=== PATIENT | female | born 1990 | race Caucasian/White ===

== ENCOUNTER 2022-02-22 18:08 | Emergency (ER) | payer OTHER, SELFPAY ==
[2022-02-22] VITALS (20 sets, daily range): BP systolic 114–136; BP diastolic 77–95; PULSE 61–97; RESP 14–30; TEMP 37.3; O2SAT 97–100
--- NOTE | 2022-02-22 18:26 | PC.NURSE ---
call to Poison Control gabapentin 5 hr peak methocarbamol 2 hr peak. not toxic dose 1 ekg, 4hr observation period
[2022-02-22] MEDS: SODIUM CHLORIDE 0.9% IV 1,000 ML 999 ML IV CONT (18:46)
[2022-02-22 18:50] LABS: Basophils Absolute Auto 0.1 K/mm3 (0.0-0.1); Basophils Percent Auto 0.7 % (0.2-1.2); Eosinophils Absolute Auto 0.1 K/mm3 (0-0.3); Eosinophils Percent Auto 1.1 % (0-4.4); Hematocrit 41.7 % (37.0-47.0); Immature Granulocyte Absolute 0.01 K/mm3 (0.00-0.031); Immature Granulocyte Percent A 0.1 % (0-0.5); Lymphocytes Absolute Auto 2.85 K/mm3 (0.9-3.2); Lymphocytes Percent Auto 40.3 % (18.3-44.2); Mean Corpuscular HGB Conc 33.6 g/dl (32-36); Mean Corpuscular Volume 92.5 fl (80-100); Mean Platelet Volume 9.9 fl (7.4-10.4); Monocytes Absolute Auto 0.7 K/mm3 (0.1-0.6); Monocytes Percent Auto 10.2 % (2.6-8.5); Neutrophils Absolute Auto 3.4 K/mm3 (1.3-6.7); Neutrophils Percent Auto 47.6 % (45.5-73.1); Platelet Count Result 289 k/mm3 (150-375); Red Blood Count 4.51 M/mm3 (4.2-5.4); Red Cell Distribution Width 15.8 % (11.5-14.5); White Blood Count 7.1 K/mm3 (4.5-10.0)
[2022-02-22 18:55] LABS: Alanine Aminotransferase 35 U/L (4-35); Albumin Level 4.5 g/dL (3.5-5.1); Alkaline Phosphatase 83 U/L (38-126); Anion Gap 9 mmol/L (8-16); Aspartate Amino Transferase 57 U/L (14-36); Bilirubin,Total 0.3 mg/dL (0.2-1.3); Blood Urea Nitrogen 11 mg/dL (7-17); Calcium 8.5 mg/dL (8.4-10.2); Carbon Dioxide 22 mmol/L (22-30); Chloride 109 mmol/L (98-107); Estimated CRCL calculation 74 ml/min; Estimated Glomerular Filt Rate > 60; Ethanol 220 mg/dL (<10); Glucose 91 mg/dL (65-110); Potassium 3.7 mmol/L (3.4-5.0); Sodium 140 mmol/L (137-145)
[2022-02-22 18:56] LABS: Acetaminophen < 10 ug/mL (10-30); Salicylate < 1.0 mg/dL (2-20)
[2022-02-22 18:57] LABS: Add Urine Microscopic? YES; Appearance Urine Cloudy (Clear); Bacteria Urine Trace /hpf; Bilirubin Urine Negative (Negative); Blood Urine Negative (Negative); Color Urine Yellow (Yellow); Glucose Urine UA Negative (Negative); Ketones Urine Negative (Negative); Leukocyte Esterase Ur Negative LEU/UL (Negative); Nitrate Urine Negative (Negative); Protein Urine Negative (Negative); RBC Urine 0-2 /hpf (0-2); Specific Grav Ur 1.013 (1.001-1.035); Squamous Epithelial Cell Urine Moderate /hpf (Few); Urobilinogen Urine Negative mg/dL (<2.0); WBC Urine 0-3 /hpf
[2022-02-22 19:03] LABS: Amphetamine Screen Urine Negative (Negative); Barbiturate Screen Urine Negative (Negative); Benzodiazepines Screen Urine Negative (Negative); Cannabinoid Screen Urine Positive (Negative); Cocaine Screen Urine Negative (Negative); Methadone Screen Urine Negative (Negative); Opiate Screen Urine Negative (Negative); Phencyclidine Screen Urine Negative (Negative)
--- NOTE | 2022-02-22 19:15 | PC.NURSE ---
SHAVON jordan [facility]
[2022-02-22 19:37] LABS: SARS-CoV-2 RNA PCR Negative
--- NOTE | 2022-02-22 20:36 | ECG_ITS ---
Measurements Intervals [place] Rate: 75 P: 70 IA: 145 QRS: 69 QRSD: 94 T: 63 QT: 404 QTc: 453 Interpretive Statements SINUS RHYTHM WITH SINUS ARRHYTHMIA NORMAL ECG NO PREVIOUS ECG AVAILABLE FOR COMPARISON Electronically Signed On 02-23-2022 12:46:13 CDT by Royce Montaño M.D.
--- NOTE | 2022-02-22 20:36 | PC.NURSE ---
spoke with poison control. Want an EKG.
--- NOTE | 2022-02-22 21:00 | ED.PSYCH ---
HPI - Psych General Chief Complaint: Psychiatric Symptoms <Mateo Sykes MD - Last Filed: 02/22/22 21:50> Stated Complaint: overdose <Mateo Sykes MD - Last Filed: 02/22/22 21:50> Time Seen by Provider: 02/22/22 18:16 <Mateo Sykes MD - Last Filed: 02/22/22 21:50> History of Present Illness HPI Narrative: Patient is a 31-year-old female who presents ER with suicide attempt. Patient ingested 10 tablets of 300 mg gabapentin and 10 tablets of 500 mg methocarbamol. Patient reports this is an attempt to take her own life. She has been under extreme stress due to having to change the date of her wedding but also having recently left her job and then training for new job. She was fighting with her ficarlos guadarrama and had been drinking a couple bottles of liquor when this situation occurred. Patient reports history of hospitalization for suicide attempt multiple times in the past. <Mateo Sykes MD - Last Filed: 02/22/22 21:50> Related Data Allergies/Adverse Reactions: Allergies Allergy/AdvReac Type Severity Reaction Status Date / Time No Known Allergies Allergy Unverified 10/28/17 22:33 <Mateo Sykes MD - Last Filed: 02/22/22 21:50> Review of Systems Review of Systems: All systems reviewed & are unremarkable except as noted in HPI and below <Mateo Sykes MD - Last Filed: 02/22/22 21:50> Constitutional: Constitutional: Denies chills, Denies fever(s) and Denies weakness <Mateo Sykes MD - Last Filed: 02/22/22 21:50> ENT: Denies nasal congestion and Denies sore throat <Mateo Sykes MD - Last Filed: 02/22/22 21:50> Cardiovascular: Cardiovascular: Denies chest pain, Denies rapid heart rate and Denies radiating jaw, neck or arm pain <Mateo Sykes MD - Last Filed: 02/22/22 21:50> Respiratory: Respiratory: Denies cough, Denies dyspnea and Denies wheezing <Mateo Sykes MD - Last Filed: 02/22/22 21:50> Gastrointestinal: Gastrointestinal: Denies abdominal pain, Denies nausea and Denies vomiting <Mateo Sykes MD - Last Filed: 02/22/22 21:50> Psychiatric: Psychiatric: Reports anxiety, Reports depression, Denies homicidal ideation and Reports suicidal ideation <Mateo Sykes MD - Last Filed: 02/22/22 21:50> PMFSH Past Medical History Medical History: Medical History (Updated 02/23/22 @ 04:34 by Martín Lopez MD) Anxiety Depression <Mateo Sykes MD - Last Filed: 02/22/22 21:50> Surgical History Surgical History: Surgical History (Updated 02/22/22 @ 21:50 by Mateo Sykes MD) History of cholecystectomy <Mateo Sykes MD - Last Filed: 02/22/22 21:50> Social History Social History: Social History (Updated 02/22/22 @ 21:50 by Mateo Sykes MD) Tobacco type: cigarettes Substance use type: marijuana <Mateo Sykes MD - Last Filed: 02/22/22 21:50> Exam Narrative: GENERAL: Well-appearing, well-nourished, and crying. HEAD: Normocephalic, atraumatic. EYES: PERRL and EOMI. ENT: Mucous membranes moist. CHEST: Clear to auscultation. No respiratory distress. HEART: Regular rate and rhythm. Normal peripheral pulses. ABDOMEN: Soft, nontender, nondistended. EXTREMITIES: Normal range of motion. No edema. SKIN: Warm, dry, no rash. NEURO: Alert and oriented x3. PSYCH: Anxious and depressed. Reports suicidal ideation and attempt tonight. No HI. No hallucinations. <Mateo Sykes MD - Last Filed: 02/22/22 21:50> Course Reevaluation(s) Reevaluation #1: Poison control contacted. Patient has ingested nontoxic amount of drug. They recommend to treat her symptomatically. Patient should be observed for 4 hours postinjection. Patient will then need to be observed until she is sober and can be evaluated by crisis. <Mateo Sykes MD - Last Filed: 02/22/22 21:50> Patient is medically stable and appropriate for crisis evaluation and psychiatric placement. <Martín
--- NOTE | 2022-02-22 23:12 | PC.NURSE ---
Poison Control states pt is cleared
[2022-02-22] MEDS: NICOTINE (*PBKC) 21 MG PATCH 1 PATCH TRANSDERM (23:21)
[2022-02-23] VITALS (20 sets, daily range): BP systolic 110–134; BP diastolic 79–89; PULSE 62–96; RESP 12–27; TEMP 36.4; O2SAT 97–100
[2022-02-23 00:28] LABS: Ethanol 89 mg/dL (<10)
--- NOTE | 2022-02-23 01:21 | PC.NURSE ---
Crisis made aware of pt
--- NOTE | 2022-02-23 02:38 | PC.NURSE ---
Crisis assessing pt at this time.
[2022-02-23] MEDS: diphenhydrAMINE HCl CAP 25 MG CAPSULE PO (04:39)
[2022-02-23] MEDS: KETOROLAC 15 MG/ML VIAL (*BKC) IV PUSH (04:39)
--- NOTE | 2022-02-23 05:49 | PC.NURSE ---
nurse to intake report to [facility] states they will call back later.
--- NOTE | 2022-02-23 05:53 | PC.NURSE ---
[facility] asking for pts chart to be sent including the voluntary petition. States they will be accepting patient. Will most likely be accepting, physician Dr. Archer.
--- NOTE | 2022-02-23 06:46 | PC.NURSE ---
called [facility] for transfer, their ETA was tomorrow 02-24-2022 at 1130 AM, declined for other EMS earlier ETA -[place]
--- NOTE | 2022-02-23 06:48 | PC.NURSE ---
pt signed consent form for transfer. RN called pts
--- NOTE | 2022-02-23 07:08 | PC.NURSE ---
[facility] to [place]. Pt to be transported via EMS around 1030 to [place].
--- NOTE | 2022-02-23 07:38 | PC.NURSE ---
pt resting in stretcher w/ equal chest rise and fall. sitter at bedside. ordered pt safety breakfast tray.
== END 2022-02-23 10:38 ==
PROVIDERS: Emergency Medicine; Emergency Provider Emergency Medicine; PCP Physician Assistant
DX: T42.6X2A Poisoning by other antiepileptic and sedative-hypnotic drugs, intentional self-harm, initial encounter (principal); T42.8X2A Poisoning by antiparkinsonism drugs and other central muscle-tone depressants, intentional self-harm, initial encounter; Z20.822 Contact with and (suspected) exposure to COVID-19; F41.9 Anxiety disorder, unspecified; F32.A Depression, unspecified; F17.210 Nicotine dependence, cigarettes, uncomplicated
CPT/HCPCS: 36415; 80053; 80307; 81001; 81025; 84443; 85025; 93005; 96361; 96374; 99285; A9270; C9803; J1885; J7030; U0003; U0005

== ENCOUNTER 2022-08-22 22:18 | Emergency (ER) | payer OTHER, SELFPAY ==
[2022-08-22 22:25] VITALS: BP 146/87; PULSE 113; RESP 14; TEMP 36.8; O2SAT 98
[2022-08-22 22:40] VITALS: BP 132/91; PULSE 98; RESP 21; O2SAT 97
[2022-08-22 23:03] LABS: Basophils Absolute Auto 0.1 K/mm3 (0.0-0.1); Basophils Percent Auto 0.8 % (0.2-1.2); Eosinophils Absolute Auto 0.1 K/mm3 (0-0.3); Immature Granulocyte Absolute 0.03 K/mm3 (0.00-0.031); Immature Granulocyte Percent A 0.3 % (0-0.5); Lymphocytes Absolute Auto 2.84 K/mm3 (0.9-3.2); Lymphocytes Percent Auto 31.6 % (18.3-44.2); Mean Corpuscular Hemoglobin 32.1 pg (26-34); Mean Corpuscular Volume 94.2 fl (80-100); Mean Platelet Volume 9.5 fl (7.4-10.4); Monocytes Absolute Auto 0.5 K/mm3 (0.1-0.6); Monocytes Percent Auto 5.5 % (2.6-8.5); Neutrophils Absolute Auto 5.5 K/mm3 (1.3-6.7); Neutrophils Percent Auto 60.8 % (45.5-73.1); Platelet Count Result 361 k/mm3 (150-375); Red Blood Count 4.99 M/mm3 (4.2-5.4); Red Cell Distribution Width 13.9 % (11.5-14.5)
[2022-08-22 23:12] LABS: Alanine Aminotransferase 29 U/L (6-35); Albumin Level 4.9 g/dL (3.5-5.1); Alkaline Phosphatase 91 U/L (38-126); Anion Gap 19 mmol/L (8-16); Aspartate Amino Transferase 40 U/L (14-36); Bilirubin,Total 0.5 mg/dL (0.2-1.3); Blood Urea Nitrogen 11 mg/dL (7-17); Calcium 9.2 mg/dL (8.4-10.2); Carbon Dioxide 24 mmol/L (22-30); Chloride 106 mmol/L (98-107); Estimated Glomerular Filt Rate > 60; Glucose 114 mg/dL (65-110); Potassium 3.6 mmol/L (3.4-5.0); Sodium 149 mmol/L (137-145)
[2022-08-22 23:30] VITALS: BP 132/74; PULSE 80; RESP 16; O2SAT 98
[2022-08-22 23:43] LABS: Amphetamine Screen Urine Negative (Negative); Barbiturate Screen Urine Negative (Negative); Benzodiazepines Screen Urine Negative (Negative); Cannabinoid Screen Urine Positive (Negative); Cocaine Screen Urine Negative (Negative); Methadone Screen Urine Negative (Negative); Opiate Screen Urine Negative (Negative); Phencyclidine Screen Urine Negative (Negative)
[2022-08-22 23:44] LABS: SARS-CoV-2 RNA PCR Negative
[2022-08-22 23:45] LABS: Add Urine Microscopic? YES; Appearance Urine Cloudy (Clear); Bacteria Urine Trace /hpf; Bilirubin Urine Negative (Negative); Blood Urine 2+ (Negative); Color Urine Yellow (Yellow); Glucose Urine UA Negative (Negative); Ketones Urine Negative (Negative); Leukocyte Esterase Ur Negative LEU/UL (Negative); Mucus Urine Rare /lpf; Nitrate Urine Negative (Negative); Protein Urine Negative (Negative); RBC Urine 0-2 /hpf (0-2); Specific Grav Ur 1.013 (1.001-1.035); Squamous Epithelial Cell Urine Many /hpf (Few); Urobilinogen Urine Negative mg/dL (<2.0); WBC Urine 0-3 /hpf
[2022-08-22 23:45] LABS: Ethanol 381 mg/dL (<10)
[2022-08-23 00:30] VITALS: PULSE 76; RESP 16; O2SAT 100
--- NOTE | 2022-08-23 01:07 | ED.GENADULT ---
HPI - General Adult General Chief complaint: Psychiatric Symptoms <Yang Mckinney MD - Last Filed: 08/23/22 06:36> Stated complaint: back pain <Yang Mckinney MD - Last Filed: 08/23/22 06:36> Time Seen by Provider: 08/22/22 22:48 <Yang Mckinney MD - Last Filed: 08/23/22 06:36> History of Present Illness HPI narrative: Patient 32-year-old female who presents the emergency department with chief complaint of suicidal ideation. Patient reports that she has been under a lot of stress and has been having thoughts of wanting to harm her self. The patient reports she drank a large amount of alcohol this evening and reports that she does not want to live anymore. Patient reports she has history of depression reports she has tried to harm her self in the past and has had hospitalizations in the past. <Yang Mckinney MD - Last Filed: 08/23/22 06:36> Related Data Allergies/adverse reactions: Allergies Allergy/AdvReac Type Severity Reaction Status Date / Time No Known Allergies Allergy Verified 08/22/22 22:40 <Yang Mckinney MD - Last Filed: 08/23/22 06:36> Review of Systems Review of Systems: A 10 system review of systems was completed on the patient and is negative except for what is stated in the HPI. Nursing and ancillary documentation was reviewed. <Yang Mckinney MD - Last Filed: 08/23/22 06:36> [facility] Past Medical History Medical History: Medical History Anxiety Depression <Yang Mckinney MD - Last Filed: 08/23/22 06:36> Surgical History Surgical History: Surgical History History of cholecystectomy <Yang Mckinney MD - Last Filed: 08/23/22 06:36> Social History Social History: Social History Tobacco type: cigarettes Substance use type: marijuana and prescription drug <Yang Mckinney MD - Last Filed: 08/23/22 06:36> Exam Narrative: GENERAL: Well-appearing, well-nourished, and in no acute distress. Appears to be intoxicated HEAD: Normocephalic, atraumatic. EYES: PERRLA and EOMI. ENT: Nares clear, no rhinorrhea or epistaxis. Mucous membranes moist. NECK: Supple. CHEST: Clear to auscultation. No respiratory distress. HEART: Regular rate and rhythm. No murmur heard. Normal peripheral pulses. ABDOMEN: Soft, nontender, nondistended, normal active bowel sounds. EXTREMITIES: Normal range of motion. No edema. SKIN: Warm, dry, no rash. NEURO: No focal deficits. Alert and oriented x3. PSYCH: Reports active suicidality. <Yang Mckinney MD - Last Filed: 08/23/22 06:36> Course Course Emergency Course: Patient is still highly intoxicated the patient will be allowed to metabolize and a repeat alcohol will be drawn at 1149 in the morning. I will be signing out care to the day provider <Yang Mckinney MD - Last Filed: 08/23/22 06:36> Reevaluation(s) Reevaluation #1: Currently patient feeling much better, denies any suicidal or homicidal ideation, would like to go home. And she agreed that her drinking have to stop and she can work it out with some alcohol dependence organization to help her to quit. She does not have about losing 1 day work today. She declined to take tomorrow off work. She needs a month. Crisis discussed safety plan with the patient. <Russ Carter MD - Last Filed: 08/23/22 15:10> Date: 08/23/22 <Russ Carter MD - Last Filed: 08/23/22 15:10> Time: 15:08 <Russ Carter MD - Last Filed: 08/23/22 15:10> Vital Signs Vital signs: Vital Signs Temperature 36.8 C 08/22/22 22:25 Pulse Rate 113 H 08/22/22 22:25 Respiratory Rate 14 08/22/22 22:25 Blood Pressure 146/87 H 08/22/22 22:25 Pulse Oximetry 98 08/22/22 22:25
--- NOTE | 2022-08-23 03:06 | PC.NURSE ---
patient jumped out of bed hysterically. attempted to open the cabinets to cut my fucking wrists, I just want to , let me go . patient sitting on the floor by the bed crying and screaming. patient moved to a more secure room. staff sitter at bedside during episode and staff member remains at bedside for 1:1 supervision
[2022-08-23] MEDS: LORazepam INJ (*CRX) 2 MG/ML VIAL IM (03:10)
[2022-08-23] MEDS: HALOPERIDOL LACTATE 5 MG/ML VIAL IM (03:11)
--- NOTE | 2022-08-23 03:12 | PC.NURSE ---
pt moved to room 15 from room 7 after jumping over rail on her bed and attempted to get into cabinet to find something to cut wrist. Pt yelling she has the right to kill herself. Pt reports she wants to because she has chronic pain
[2022-08-23] MEDS: ACETAMINOPHEN 325 MG TABLET 650 MG PO (12:08)
[2022-08-23] MEDS: IBUPROFEN 600 MG TABLET PO (12:08)
[2022-08-23 12:13] LABS: Ethanol 31 mg/dL (<10)
[2022-08-23 15:39] VITALS: BP 112/52; PULSE 84; RESP 18; O2SAT 100
== END 2022-08-23 16:00 | disposition home or self-care (01) ==
PROVIDERS: Emergency Medicine; Emergency Provider Emergency Medicine; PCP Physician Assistant
DX: F10.129 Alcohol abuse with intoxication, unspecified (principal); Y90.8 Blood alcohol level of 240 mg/100 ml or more; Z20.822 Contact with and (suspected) exposure to COVID-19; F41.9 Anxiety disorder, unspecified; F32.9 Major depressive disorder, single episode, unspecified
CPT/HCPCS: 36415; 80053; 80307; 81001; 81025; 84443; 85025; 96372; 99284; A9270; J1630; J2060; U0003; U0005

== ENCOUNTER 2023-04-18 18:44 | Emergency (ER) | payer OTHER, SELFPAY ==
[2023-04-18 18:43] VITALS: BP 148/95; PULSE 96; RESP 17; TEMP 36.8; O2SAT 98
[2023-04-18 19:12] LABS: Basophils Absolute Auto 0.1 K/mm3 (0.0-0.1); Basophils Percent Auto 0.8 % (0.2-1.2); Eosinophils Absolute Auto 0.1 K/mm3 (0-0.3); Eosinophils Percent Auto 1.1 % (0-4.4); Hematocrit 45.2 % (37.0-47.0); Hemoglobin 15.4 g/dL (12.0-15.0); Immature Granulocyte Absolute 0.02 K/mm3 (0.00-0.031); Immature Granulocyte Percent A 0.2 % (0-0.5); Lymphocytes Absolute Auto 3.25 K/mm3 (0.9-3.2); Lymphocytes Percent Auto 35.2 % (18.3-44.2); Mean Corpuscular HGB Conc 34.1 g/dl (32-36); Mean Corpuscular Hemoglobin 30.7 pg (26-34); Mean Corpuscular Volume 90.2 fl (80-100); Mean Platelet Volume 9.4 fl (7.4-10.4); Monocytes Absolute Auto 0.6 K/mm3 (0.1-0.6); Monocytes Percent Auto 6.2 % (2.6-8.5); Neutrophils Absolute Auto 5.2 K/mm3 (1.3-6.7); Neutrophils Percent Auto 56.5 % (45.5-73.1); Platelet Count Result 357 k/mm3 (150-375); Red Blood Count 5.01 M/mm3 (4.2-5.4); Red Cell Distribution Width 13.9 % (11.5-14.5); White Blood Count 9.2 K/mm3 (4.5-10.0)
[2023-04-18 19:23] LABS: Alanine Aminotransferase 30 U/L (6-35); Albumin Level 4.6 g/dL (3.5-5.1); Alkaline Phosphatase 74 U/L (38-126); Anion Gap 11 mmol/L (8-16); Aspartate Amino Transferase 35 U/L (14-36); Bilirubin,Total 0.4 mg/dL (0.2-1.3); Blood Urea Nitrogen 14 mg/dL (7-17); Calcium 8.7 mg/dL (8.4-10.2); Carbon Dioxide 25 mmol/L (22-30); Chloride 107 mmol/L (98-107); Estimated CRCL calculation 93 ml/min; Estimated Glomerular Filt Rate > 60; Glucose 95 mg/dL (65-110); Potassium 3.8 mmol/L (3.4-5.0); Sodium 143 mmol/L (137-145)
[2023-04-18 19:39] LABS: Ethanol 342 mg/dL (<10)
--- NOTE | 2023-04-18 19:58 | ED.PSYCH ---
HPI - Psych General Chief Complaint: Psychiatric Symptoms <SHUBHAM Colon Last Filed: 04/25/23 08:54> Stated Complaint: SI <SHUBHAM Colon Last Filed: 04/25/23 08:54> Time Seen by Provider: 04/18/23 19:25 <SHUBHAM Colon Last Filed: 04/25/23 08:54> Source: patient and old records reviewed <SHUBHAM Colon Last Filed: 04/25/23 08:54> Mode of arrival: ambulatory <SHUBHAM Colon Last Filed: 04/25/23 08:54> Limitations: no limitations and intoxication <SHUBHAM Colon Last Filed: 04/25/23 08:54> History of Present Illness HPI Narrative: Patient is a 33-year-old female who presents to the ED with report of SI. Patient reports she is self admitting herself for alcohol detox and psychiatric treatment. Patient reports she has been dealing with worsening pain over the last few days related to her fibromyalgia. She has been drinking to try to cope with the pain. She has been drinking daily for the last 4 days. Last drank shooters at noon today. Patient reports having intermittent suicidal thoughts over the last few days, worsening today. She states she just does not want to be here anymore or want anyone to have to worry about her. She has had a thought of wanting to overdose on pills. She states she has done this before. She did not take anything today. Denies any homicidal ideation, AVH. <SHUBHAM Colon Last Filed: 04/25/23 08:54> Related Data Allergies/Adverse Reactions: Allergies Allergy/AdvReac Type Severity Reaction Status Date / Time No Known Allergies Allergy Verified 04/18/23 19:00 <SHUBHAM Colon Last Filed: 04/25/23 08:54> Review of Systems Review of Systems: CONSTITUTIONAL: Denies fever, chills, or sweats. CARDIOVASCULAR: Denies chest pain. RESPIRATORY: Denies dyspnea. GASTROINTESTINAL: Denies abdominal pain, nausea, vomiting. GENITOURINARY: Denies dysuria or hematuria. SKIN: Denies rash or itching. MUSCULOSKELETAL: See HPI. PSYCHIATRIC: See HPI. <Erica Parisi PA-C - Last Filed: 04/25/23 08:54> All systems reviewed & are unremarkable except as noted in HPI and below <Erica Parisi PA-C - Last Filed: 04/25/23 08:54> [facility] Past Medical History Medical History: Medical History Anxiety Depression <Erica Parisi PA-C - Last Filed: 04/25/23 08:54> Surgical History Surgical History: Surgical History History of cholecystectomy <Erica Parisi PA-C - Last Filed: 04/25/23 08:54> Social History Social History: Social History Tobacco type: cigarettes Substance use type: marijuana <Erica Parisi PA-C - Last Filed: 04/25/23 08:54> Exam Narrative: GENERAL: Anxious, obese with BMI of 30.3, non-toxic, in no acute distress. HEAD: Normocephalic, atraumatic. NECK: Supple. No adenopathy, no masses. RESPIRATORY: Airway patent, respirations nonlabored, hyperventilating, intermittently holding breath. Clear to auscultation bilaterally, no rales, rhonchi, wheezing. CARDIOVASCULAR: Regular rate and rhythm without murmurs, rubs, or gallops. Radial pulses 2+ and equal bilaterally. ABDOMINAL: Soft, nontender, nondistended, no hepatosplenomegaly. Normoactive BS. MUSCULOSKELETAL: Moves all extremities. Strength/ROM intact without gross deformities. SKIN: Warm, dry, normal color. No rashes. NEURO: A&O X3. Speech clear. Cranial nerves II-XII grossly intact. Steady gait. No ataxic movements. PSYCHIATRIC: Anxious, tearful, writhing on ED bed. Normal interaction. <Erica Parisi PA-C - Last Filed: 04/25/23 08:54> Course Course Emergency Course: Patient resting comfortably. Clinically sober. Contracted for sa
[2023-04-18] MEDS: LORazepam INJ (*CRX) 2 MG/ML VIAL 0.5 MG IM (20:28)
[2023-04-18 21:44] LABS: Amphetamine Screen Urine Negative (Negative); Barbiturate Screen Urine Negative (Negative); Benzodiazepines Screen Urine Negative (Negative); Cannabinoid Screen Urine Positive (Negative); Cocaine Screen Urine Negative (Negative); Methadone Screen Urine Negative (Negative); Opiate Screen Urine Negative (Negative); Phencyclidine Screen Urine Negative (Negative)
[2023-04-18 21:52] LABS: Appearance Urine Cloudy (Clear); Bacteria Urine 4+ /hpf; Bilirubin Urine Negative (Negative); Blood Urine Negative (Negative); Color Urine Yellow (Yellow); Glucose Urine UA Negative (Negative); Ketones Urine Trace mg/dL (Negative); Leukocyte Esterase Ur Negative LEU/UL (Negative); Need Manual Microscopic Reviewed; Nitrate Urine Negative (Negative); Non Pathogenic Casts 0-2; Protein Urine 1+ mg/dL (Negative); Specific Grav Ur 1.021 (1.001-1.035); Squamous Epithelial Cell Urine Many /hpf (Few); WBC Urine 0-5 /hpf; pH Urine 6.5 (5.0-9.0)
[2023-04-18 22:00] LABS: Add Urine Microscopic? YES
--- NOTE | 2023-04-18 23:53 | PC.NURSE ---
After admin of Ativan pt stated she was feeling much less anxious . Pt was given food/water. Pt has been resting quietly since.
--- NOTE | 2023-04-19 | PC.NURSE ---
at this time this RN is awaiting pt medical clearance to contact Crisis.
[2023-04-19 05:11] LABS: Influenza A QL RT-PCR Negative (Negative); Influenza B QL RT-PCR Negative (Negative); SARS-CoV-2 RNA PCR Negative (Negative)
[2023-04-19 06:37] VITALS: BP 117/59; PULSE 75; RESP 11; O2SAT 99
--- NOTE | 2023-04-19 06:40 | PC.NURSE ---
Pt reports she is not having SI or HI. Pt states I just feel stupid, I need rehab
[2023-04-19 07:07] LABS: Ethanol 63 mg/dL (<10)
--- NOTE | 2023-04-19 07:15 | PC.NURSE ---
Breakfast tray ordered for pt.
[2023-04-19] MEDS: ONDANSETRON HCL ODT 4 MG TABLET PO (07:37)
== END 2023-04-19 10:29 | disposition home or self-care (01) ==
PROVIDERS: Emergency Medicine; Emergency Provider Physician Assistant; PCP Physician Assistant
DX: R45.851 Suicidal ideations (principal); F32.A Depression, unspecified; F10.10 Alcohol abuse, uncomplicated; Y90.8 Blood alcohol level of 240 mg/100 ml or more; Z20.822 Contact with and (suspected) exposure to COVID-19; M79.7 Fibromyalgia; Z90.49 Acquired absence of other specified parts of digestive tract
CPT/HCPCS: 36415; 80053; 80307; 81001; 81025; 84443; 85025; 87086; 87088; 87636; 96372; 99284; A9270; J2060

== ENCOUNTER 2023-08-27 12:55 | Outpatient (CLI) | payer OTHER, SELFPAY ==
--- NOTE | ~2023-08-27 | MR_ITS ---
EXAMINATION: MR breast BI wo/w con INDICATION: High-risk screening TECHNIQUE: Axial VIBRANT pre and dynamic post contrast, Sagittal VIBRANT post contrast, Axial T2 STIR ASSET COMPARISON: None CONTRAST: Multihance, 19 cc BREAST COMPOSITION: Scattered fibroglandular tissue FINDINGS: RIGHT BREAST: There is mild background parenchymal enhancement. No abnormal enhancement is present af ter contrast administration. No pathologically enlarged axillary or internal mammary lymph nodes are identified. Intramammary lymph node is present in the posterior third of the upper outer quadrant of the breast. LEFT BREAST: There is mild background parenchymal enhancement. No abnormal enhancement is present aft er contrast administration. No pathologically enlarged axillary or internal mammary lymph nodes are i dentified. There is a cluster of cysts in the upper outer quadrant of the breast. IMPRESSION: 1. Unremarkable breast MRI. BI-RADS Category 2: Benign finding(s). Reviewed, dictated and finalized at location A. [facility]
== END 2023-08-27 12:56 | disposition home or self-care (01) ==
LOC: ANHIMG 13:00
PROVIDERS: PCP Physician Assistant; Visit Provider Physician Assistant
DX: R92.8 Other abnormal and inconclusive findings on diagnostic imaging of breast (principal)
CPT/HCPCS: 77049; A9577; C8908

== ENCOUNTER 2024-11-07 19:45 | Emergency (ER) | payer OTHER, SELFPAY ==
[2024-11-07 19:55] VITALS: BP 128/80; PULSE 87; RESP 17; TEMP 36.4; O2SAT 99
--- NOTE | 2024-11-07 21:46 | PC.NURSE ---
Patient walked up to triage desk and advised that she was leaving. Patient had a steady gait upon leaving.
== END 2024-11-07 23:12 | disposition left against medical advice (07) ==
PROVIDERS: PCP Physician Assistant Medical
DX: R51.9 Headache, unspecified (principal)
CPT/HCPCS: 99199

== ENCOUNTER 2025-09-08 09:59 | Outpatient (CLI) | payer OTHER, SELFPAY ==
--- NOTE | 2025-09-08 10:30 | NEURO_ITS ---
Impression: # Non-diabetic complains of numbness of hands. ? # Bilateral Carpal Tunnel Syndrome, right more than left. ? # Right early Ulnar Neuropathy. ? # Normal Needle/ EMG exam. Nerve Conduction Studies ?Stim Site NR Peak (ms) P-T Amp (?V) Site1 Site2 Delta-P (ms) Dist (cm) David (m/s) Left Median Anti Sensory (2-3nd Digit) Wrist ? 2.9 26.3 Wrist 2-3nd Digit 2.9 14.0 48 Wrist ? 3.6 28.4 Wrist 2-3nd Digit 2.9 14.0 48 Right Median Anti Sensory (2-3nd Digit) Wrist ? 4.5 23.3 Wrist 2-3nd Digit 4.5 14.0 31 Wrist ? 5.9 4.6 Wrist 2-3nd Digit 4.5 14.0 31 Left Radial Anti Sensory (Base 1st Digit) Wrist ? 1.7 33.9 Wrist Base 1st Digit 1.7 0.0 Right Radial Anti Sensory (Base 1st Digit) Wrist ? 1.9 30.7 Wrist Base 1st Digit 1.9 0.0 Left Ulnar Anti Sensory (5th Digit) Wrist ? 1.9 34.4 Wrist 5th Digit 1.9 14.0 74 Right Ulnar Anti Sensory (5th Digit) Wrist ? 2.0 33.6 Wrist 5th Digit 2.0 14.0 70 ?Stim Site NR Onset (ms) O-P Amp (mV) Site1 Site2 Delta-0 (ms) Dist (cm) David (m/s) Left Median Motor (Abd Poll Brev) Wrist ? 4.5 4.8 Elbow Wrist 4.8 28.0 58 Elbow ? 9.3 3.0 Right Median Motor (Abd Poll Brev) Wrist ? 4.8 3.4 Elbow Wrist 5.5 28.0 51 Elbow ? 10.3 3.5 Left Ulnar Motor (Abd Dig Minimi) Wrist ? 2.8 6.4 A Elbow Wrist 4.6 30.0 65 A Elbow ? 7.4 5.7 B Elbow Wrist 3.3 22.0 67 B Elbow ? 6.1 4.9 Right Ulnar Motor (Abd Dig Minimi) Wrist ? 2.4 5.8 A Elbow Wrist 4.7 30.0 64 A Elbow ? 7.1 6.3 B Elbow Wrist 3.3 20.0 61 B Elbow ? 5.7 5.1 F Wave Studies ?NR F-Lat (ms) L-R F-Lat (ms) Left Median (Mrkrs) (Abd Poll Brev) ? 26.86 0.82 Right Median (Mrkrs) (Abd Poll Brev) ? 27.68 0.82 Left Ulnar (Mrkrs) (Abd Dig Min) ? 25.55 0.39 Right Ulnar (Mrkrs) (Abd Dig Min) ? 25.94 0.39 Electromyography ?Side Muscle Nerve Root Ins Act Fibs Amp Dur Recrt Comment Right 1stDorInt Ulnar C8-T1 Nml Nml Nml Nml Nml Right Ext Indicis Radial (Post Int) C7-8 Nml Nml Nml Nml Nml Right Ext Digitorum Radial (Post Int) C7-8 Nml Nml Nml Nml Nml Right BrachioRad Radial C5-6 Nml Nml Nml Nml Nml Right PronatorTeres Median C6-7 Nml Nml Nml Nml Nml Right Abd Poll Brev Median C8-T1 Nml Nml Nml Nml Nml Right ABD Dig Min Ulnar C8-T1 Nml Nml Nml Nml Nml Right FlexPolLong Median (Ant Int) C7-8 Nml Nml Nml Nml Nml Right Abd Poll Long Radial (Post Int) C7-8 Nml Nml Nml Nml Nml Left 1stDorInt Ulnar C8-T1 Nml Nml Nml Nml Nml Left Ext Indicis Radial (Post Int) C7-8 Nml Nml Nml Nml Nml Left Ext Digitorum Radial (Post Int) C7-8 Nml Nml Nml Nml Nml Left BrachioRad Radial C5-6 Nml Nml Nml Nml Nml Left PronatorTeres Median C6-7 Nml Nml Nml Nml Nml Left Abd Poll Brev Median C8-T1 Nml Nml Nml Nml Nml Left ABD Dig Min Ulnar C8-T1 Nml Nml Nml Nml Nml Left FlexPolLong Median (Ant Int) C7-8 Nml Nml Nml Nml Nml Left Abd Poll Long Radial (Post Int) C7-8 Nml Nml Nml Nml Nml
--- OUTSIDE RECORDS SUMMARY | 2025-09-08 11:03 | XMS_ITS | Encounter Summary ---
Author Organization [facility] Address [address] [place] [address] [place] [address] Care Team Providers Care Occupancy Specialist Name Role Phone Nopcp, Patient Primary Care Provider UnavailCathryn Gustafson MD Primary Care Provider [phone] Marco A Mullen MD Unavailable Cathryn Peres MD Primary Care Provider [phone] Pcp, Unknown Primary Care Provider UnavailCathryn Gustafson MD Primary Care Provider [phone] Tarsha Herbert-Hector Primary Care Provider [phone] Faviola Torres-C Primary Care Provider + Dave Vasquez-C Primary Care Provider [phone] Encounter Details Date Type Department Care Team (Late st Contact Info) Description 06/08/2008 [facility] Outpatient Visit [facility] [employer] [address] [place] [address] Marco A Mullen MD [address] [place] [address] Social History Tobacco Use Types Packs/Day Years Used Date Smoking Tobacco: Every Day Cigarettes 0.5 8 Comments:READY TO QUIT Alcohol Use Standard Drinks/Week Comments No 0 (1 standard drink = 0.6 oz pur e alcohol) Comments Yes Sex and Gender Information Value Date Recorded Sex Assigned at Not on file Legal Sex Female 6:49 AM [employer] Gender Identity Not on file Sexual Orientation Not on file documented as of this encounter Plan of Treatment Upcoming Encounters Date Type Department Care Team (Late st Contact Info) Description 10/25/2025 9:00 AM [employer] Office Visit [facility] - Rheumatology [address] [place] [phone] Catie Bennett MD [address] [place] [phone] 02/24/2026 9:30 AM CDT Office Visit [facility] - Pulmonology [address] [facility] [place] [phone] Johnathan Saldivar MD [address] DIV OF PULMONARY/[place] [address] documented as of this encounter Visit Diagnoses Not on filedocumented in this encounter Care Teams Occupancy Specialist Relationship Specialty Start Date End Date Nopcp, Patient PCP - General 06/11/08 02/19/11 Cathryn Peres MD [address] [place] [phone] PCP - General 05/25/08 06/10/08 Marco A Mullen MD [address] [place] [phone] PCP - OBGYN 05/27/08 Cathryn Peres MD [address] [place] [phone] PCP - General 02/20/11 01/10/13 Pcp, Unknown [place] [address] PCP - General 01/11/13 Cathryn Peres MD [place] [address] PCP - General Family Medicine 02/05/13 07/16/18 Tarsha Herbert PA-C [place] [address] PCP - General 07/17/18 11/29/22 Faviola Torres PA-C [address] [place] [phone] PCP - General 11/30/22 09/28/24 Dave Vasquez PA-C [address] [place] [phone] PCP - General 09/29/24 documented as of this encounter
--- OUTSIDE RECORDS SUMMARY | 2025-09-08 11:03 | XMS_ITS | Patient Health Record ---
Author Organization [facility] Address [address] [place] [address] Care Team Providers Care Security Assistant Name Role Phone Wyatt Estes Primary Care Provider Allergies No Known Allergies Reason For Referral No Information Medications Medication SIG (Take, Route, Frequency, Duration) Notes Start Date End Date Status traMADol HCl 50 MG 1 tablet Orally Once a day Active Methocarbamol 500 MG 2 tablets Orally Tw ice a day Active Famotidine 20 MG Oral; Duration: 30 Days Active Fluticasone Propionate 50 MCG/ACT Nasal; Duration: 30 Days Active Allergy Relief 180 MG Oral; Duration: 30 Days Active lamoTRIgine 100 MG 1.5 tablet Orally twice a day; Duration: 30 day(s) Not-Taking hydrOXYzine Pamoate 50 MG 1 capsule as n eeded Orally twice a day Not-Taking traZODone HCl 100 MG 2 tablet at bedtime as needed Orally Once a day; Duration: 30 days Active cloNIDine HCl 0.1 MG 1 tablet Orally thr ee times a day; Duration: 30 days Active Abilify 20 MG 1 tablet Orally Once a day; Duration: 30 days Active ARIPiprazole 5 MG 1 tablet Orally at night Not-Taking Depakote ER 500 MG 2 tablet bedtime Orally Once a day; Duration: 30 days Active Abilify 15 MG 1 tablet Orally Once a day; Duration: 30 days Not-Takin g Gabapentin 300 MG 1 capsule Orally thr ee times daily Active Social History Tobacco Use: Social History Observation Description Date Details (start date - stop date) Current Smoker NA - NA Sex Assigned At : Social History Observation Description Sex Assigned At Female Tobacco Control (Standard) Question Answer Notes Tobacco use: Current smoker How often do you smoke cigarettes? Every day How many cigarettes a day do you smoke? 09-16 Problems Problem Type SNOMED Code ICD Code Onset Dates Problem Status W/U Status Risk Notes Problem Tobacco user (931240925) Nicotine dependence, unspecified, uncomplicated (F17.200) Active confirmed Problem Attention deficit hyperactivity disorder (725799634) ADHD (attention deficit hyperactivity disorder) (F90.9) Active confirmed Problem Bipolar 2 disorder (99486254) Bipolar 2 disorder (F31.81) Active confirmed Problem Alcohol use disorder (6669158801) Alcohol use disorder (F10.99) Active confirmed Vital Signs Height 69 in 03/26/2025 Weight 207.5 lbs 03/26/2025 BMI 30.64 kg/m2 03/26/2025 Encounters Encounter Location Date Provider Diagnosis [address] [address] 09/15/2024 Arif Habib Bipolar 2 disorder F31.[address] [address] 11/20/2024 Arif Habib Nicotine dependence, unspecified, uncomplicated F17.200 and Bipolar 2 disorder F31.[address] [address] 01/19/2025 Arif Habib Nicotine dependence, unspecified, uncomplicated F17.200 and Bipolar 2 disorder F31.[address] [address] 02/23/2025 Arif Habib Nicotine dependence, unspecified, uncomplicated F17.200 and Bipolar 2 disorder F31.[address] [address] 03/26/2025 Arif Habib Nicotine dependence, unspecified, uncomplicated F17.200 and Bipolar 2 disorder F31.[address] [address] 05/25/2025 Arif Habib Nicotine dependence, unspecified, uncomplicated F17.200 and Bipolar 2 disorder F31.[address] [address] 07/27/2025 Arif Habib Nicotine dependence, unspecified, uncomplicated F17.200 and Bipolar 2 disorder F31.[address] [address] 01/29/2025 Arif Habib [facility] [address] [place] [address] 2025 Arif Habib Bipolar 2 disorder F31.[address] [address] 03/25/2025 Arif Habib [facility] [address] [place] [address] 03/29/2025 Arif Habib Nicotine dependence, unspecified, uncomplicated F17.[address] [address] 04/09/2025 Arif Habib [address] [address] 05/24/2025 Arif Habib [facility] [address] [address] 05/25/2025 Arif Habib Bipolar 2 disorder F31.[address] [address] 06/24/2025 Arif Habib Assessments Encounter Date Diagnosis (ICD Code) Assessment Notes Treatment Notes Treatment Clinical Notes Section Notes 09/15/2024 Bipolar 2 disorder (ICD-10 - F31.81) continue current treatment. Side efefcts discussed. Lower Depakote to 1000 mg a day due to side effects of low libido as per pt request. 11/20/2024 Nicotine dependence, unspecified, uncomplicated (ICD-10 - F17.200) 01/19/2025 Nicotine dependence, unspecified, uncomplicated (ICD-10 - F17.200) 02/23/2025 Nicotine dependence, unspecified, uncomplicated (ICD-10 - F17.200) 2025 Bipolar 2 disorder (ICD-10 - F31.81) 03/26/2025 Nicotine dependence, unspecified, uncomplicated (ICD-10 - F17.200) 03/29/2025 Nicotine dependence, unspecified, uncomplicated (ICD-10 - F17.200) 07/27/2025 Nicotine dependence, unspecified, uncomplicated (ICD-10 - F17.200) 05/25/2025 Nicotine dependence, unspecified, uncomplicated (ICD-10 - F17.200) 05/25/2025 Bipolar 2 disorder (ICD-10 - F31.81) 05/25/2025 Bipolar 2 disorder (ICD-10 - F31.81) continue current treatment. Side effects discussed.Pt is taking Clonidine as needed only and takes few times a week and has enough at home. Pt is also on Tramadol, Gabapentin, muscle relaxer. Her last depakote level was 51 on 08/10/24. Repeat labs.Adised to have her depakote level checked also when PCP repeats her labs. 07/27/2025 Bipolar 2 disorder (ICD-10 - F31.81) continue current treatment. Side effects discussed.Pt is taking Clonidine as needed . Pt is also on Tramadol, Gabapentin, muscle relaxer. Her last depakote level was 51 on 08/10/24. Repeat labs.Adised to have her depakote level checked 03/26/2025 Bipolar 2 disorder (ICD-10 - F31.81) continue current treatment. Side efefcts discussed. Continue Trazodone 200 mg HS as pt request because it helped before. Pt is also on Tramadol, Gabapentin, muscle relaxer. Her last depakote level was 51 on 08/10/24. Repeat labs. 02/23/2025 Bipolar 2 disorder (ICD-10 - F31.81) continue current treatment. Side efefcts discussed. Restart Trazodone 200 mg HS as pt request because it helped before. She already quit Doxepin 25 mg HS for sleep. Pt is also on Tramadol, Gabapentin, muscle relaxer. She has appointment with pain mgt tomorrow. Her last depakote level was 51 on 08/10/24. Repeat labs. 01/19/2025 Bipolar 2 disorder (ICD-10 - F31.81) continue current treatment. Side efefcts discussed. Stop Trazodone due to side effects. Start Doxepin 25 mg HS for sleep. Her last depakote level was 51 on 08/10/24. Repeat labs. 11/20/2024 Bipolar 2 disorder (ICD-10 - F31.81) continue current treatment. Side efefcts discussed. She is taking Depakote to 500 mg twice a day now. Plan Of Treatment Pending Test Test Name Order Date Valproic Acid (Depakote)(R),S 05/06/2023 Insurance Providers Payer Name Payer Address Payer Phone Subscriber Number Group Number Insured Name Patient Relationship to Insured Coverage Start Date Coverage End Date [facility] Attn Claims Department [address] [place] [address] [id number] Naila Middleton Self - patient is the insured 8 [place] [employer] Attn Claims Department [address] [place] [address] [id number] Naila Middleton Self - patient is the insured 0 Medications Administered Medication Instructions Date of Administration Dosage Notes Vivitrol 03/13/2022 380 mg Pt cosme well. Vivitrol 04/10/2022 380 mg Pt cosme well. Medical (General) History Surgical History Surgery Date(Month/Year) gallbladder removal pancreas stone removal Hospitalization History Reason Date(Month/Year) [facility] 2023 [facility] ER for upper resp infec tion 07/23/2021 [facility] for spontaneous collapse of right l enedina December 2022 [facility] ER visit for back pain January 2022 [facility] 05/2018 child x 4
--- OUTSIDE RECORDS SUMMARY | 2025-09-08 11:03 | XMS_ITS | Clinical Summary ---
Author Organization [facility] Address [address] [place] [address] Care Team Providers Care Glass Calibrator Name Role Phone Marco A Mullen MD Unavailable Dave Vasquez PA-C Primary Care Provider [phone] Source Comments [facility],non-owned Affiliates and Associated Physician Practices is amultiple site organization consisting of ambulatory clinics and hospital sitesin [place], [place], [place] and [place]. This disclosure is being madepursuant to the Care Everywhere program and may not contain all information available regarding this patient. Last updated 18.[facility] Allergies No known active allergies Medications * This document contains information received from the source organization and may not represent a complete record from that organization. * Be aware that medications may not be up to date on this document. Alwaysverify current medications with the patient. cetirizine (ZYRTEC) 10 MG tablet TK 1 T PO QD 3 8 Active traZODone (DESYREL) 100 MG tablet TK 1 T PO QD HS PRN 0 8 Active fluticasone propionate (FLONASE) 50 MCG/ACT nasal spray 8 Active topiramate (Topamax) 100 MG tablet Take 1 (one) tablet by mouth 2 times daily 3 Active lidocaine (Lidoderm) 5 % patch APPLY 1 PATCH TOPICALLY TO THE SKIN EVERY DAY. MAY WEAR UP TO 12 HOURS 3 Active gabapentin (Neurontin) 300 MG capsule Take 2 (two) capsules by mouth 3 times daily 3 Active cyclobenzaprine (Flexeril) 10 MG tablet Take 1 (one) tablet by mouth every 8 hours 3 Active busPIRone (Buspar) 15 MG tablet Take 1 (one) tablet by mouth 2 times daily 3 Active ARIPiprazole (Abilify) 15 MG tablet Take 1 (one) tablet by mouth once daily 3 Active Acetaminophen Extra Strength 500 MG tablet TAKE 2 TABLETS BY MOUTH EVERY 6 HOURS NEEDED 2 Active divalproex ER 24hr (Depakote ER) 500 MG tablet TAKE 2 TABLETS BY MOUTH EVERY DAY AT BEDTIME 3 Active traMADol (Ultram) 50 MG tablet Active methylPREDNISol one (Medrol Dosepak) 4 MG tablet Take by mouth as directed Take as directed by mouth per package instructions. 21 tablet 3 Active tiZANidine (Zanaflex) 4 MG tablet Take 1 (one) tablet by mouth every 8 hours as needed for Muscle Spasms 60 tablet 3 Active Cholecalciferol 1.25 MG (61961 UT) Take 1 capsule every week by oral route. 4 Active cloNIDine (Catapres) 0.1 MG tablet Take 1 (one) tablet by mouth 3 times daily Active lamoTRIgine (LaMICtal) 100 MG tablet 1.5 tablet Orally twice a day for 30 day(s) Active methocarbamol (Robaxin) 500 MG tablet Take 2 (two) tablets by mouth 2 times daily as needed 4 Active divalproex ER 24hr (Depakote ER) 250 MG tablet Take 1 (one) tablet by mouth once daily Active oxyBUTYnin CR 24hr (Ditropan-XL) 10 MG tablet Take 1 (one) tablet by mouth once daily 90 tablet 4 5 Active Allergy Relief 180 MG tablet Take 1 (one) tablet by mouth once daily Active famotidine (Pepcid) 20 MG tablet TAKE 1 TABLET BY MOUTH TWICE DAILY X 30 DAYS Active albuterol HFA (ProAir HFA) 108 (90 Base) MCG/ACT inhalerIndicati ons:Dyspnea on exertion Inhale 2 (two) puffs by mouth every 6 hours as needed for Wheezing or Shortness of Breath 8.5 g 5 5 Active Varenicline Tartrate, Starter, (Chantix Starting Month Itz) 0.5 MG X 11 & 1 MG X 42 tablets as directed 5 Active nicotine polacrilex (Nicotine Mini) 2 MGIndications:N icotine Dependence Take 1 (one) Each by mouth as needed Reasons: Nicotine Addiction 60 lozenge 5 09/25/20 25 Active Active Problems Problem Noted Date Diagnosed Date 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 05/06/2025 Low back pain 07/17/2018 Lumbar radiculopathy 07/17/2018 Supervision of other high-risk 014 Overview (09/04/2015): Bipolar disorder 12/03/2013 Alcoholism 12/03/2013 Resolved Problems Problem Noted Date Diagnosed Date Resolved Date Bipolar I disorder 01/12/2013 4 Overview (01/21/2016): 2015 IMO Updt Borderline personality disorder 01/12/2013 12/03/2013 Bipolar I disorder, most rec ent episode (or current) depressed, severe, without mention of psychotic behavior 08/23/2012 12/03/2013 Overview (07/28/2017): IMO Update 07/28/2017 Other and unspecified alcoho l dependence, unspecified drinking behavior 08/23/2012 12/03/2013 Alcohol abuse, in remission 10/27/2011 12/03/2013 Depression with anxiety 10/27/201103/2014 state, incidental 10/27/2011 0 12/03/2013 Marijuana abuse 10/27/2011 12/03/2013 Chest pain 08/06/2011 12/03/2013 Abdominal pain, left lower quadrant 07/01/2011 12/03/2013 Hematuria 07/01/2011 12/03/2013 Trauma 10/15/2010 12/03/2013 Headache 12/06/2008 12/03/2013 Overview (09/04/2015): Screening for cervical cancer 05/27/2008 12/03/2013 Overview (05/27/2008): 2007 WNL Hyperemesis gravidarum with metabolic disturbance, antepartum 05/21/2008 10/24/2011 Overview (05/21/2008): Resolved within last 2 weeks: lost 32 lbs, now is gaining wt. Last vomiting once in transit from [place] to [place]. Encounters Date Type Department Care Team Description 08/26/2025 8:30 AM CDT Office Visit [facility] - Pulmonology [address] [place] [address] Johnathan Saldivar MD Cigarette nicotine dependence without complication (Primary Dx) 08/26/2025 Travel 08/20/2025 7:27 AM CDT - 08/20/2025 11:59 PM CDT Hospital Encounter [facility] PFT [address] [place] [address] Johnathan Saldivar MD Discharge Disposition: Home or Self Care 07/02/2025 Travel from Last 3 Months Family History Medical History Relation Name Comments Asthma Brother Diabetes Father Hypertension Father Cancer Maternal Grandmother Alcohol abuse Mother Bipolar Disorder Mother Cancer Mother Depression Mother Migraine Mother Arthritis Neg Hx Bleeding Disorders Neg Hx Clotting Disorder Neg Hx Genetic/Metabolic Disease Neg Hx Heart Disease Neg Hx Kidney Disease Neg Hx Multiple Births Neg Hx Labor Neg Hx Sickle Cell Anemia Neg Hx Stroke Neg Hx Toxemia Neg Hx Tuberculosis Neg Hx Twins Neg Hx Relation Name Status Comments Brother Father Alive Maternal Grandmother Mother Alive Social History Tobacco Use Types Packs/Day Years Used Date Smoking Tobacco: Every Day Cigarettes 0.5 17.8 Started: 11/04/2007 Smokeless Tobacco: Never Tobacco Cessation:Ready to Q uit: Not Asked; Counseling Given: Not Answered Alcohol Use Standard Drinks/Week Comments Yes 0 (1 standard drink = 0.6 oz pur e alcohol) occasional Comments No Sex and Gender Information Value Date Recorded Sex Assigned at Not on file Legal Sex 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 [employer] Gender Identity Not on file Sexual Orientation Not on file Last Filed Vital Signs Vital Sign Reading Time Taken Comments Blood Pressure 114/72 08/26/2025 8:36 AM CDT Pulse 68 08/26/2025 8:36 AM CDT Temperature 36.6 C (97.8 F) 12/21/2024 9:55 AM FRONT END DEVEL[employer] Respiratory Rate 17 08/26/2025 8:36 AM CDT Oxygen Saturation 96% 08/26/2025 8:36 AM CDT Inhaled Oxygen Concentration - - Weight 90.3 kg (199 lb) 08/26/2025 8:36 AM CDT Height 175.3 cm (5' 9) 08/26/2025 8:36 AM CDT Body Mass Index 29.39 08/26/2025 8:36 AM CDT Plan of Treatment Upcoming Encounters Date Type Department Care Team (Late st Contact Info) Description 10/25/2025 9:00 AM FRONT END DEVELOPER [employer] Office Visit [facility] - Rheumatology [address] [place] [phone] Catie Bennett MD [address] [place] [address] [address] [place] [phone] 02/24/2026 9:30 AM CDT Office Visit [facility] - Pulmonology [address] [facility] [place] [phone] Johnathan Saldivar MD [address] [place] [address] [address] DIV OF PULMONARY/[place] [address] Health Maintenance Due Date Last Done Comments HIV SCREENING 2003 HEPATITIS C SCREENING 02/27/2006 DTAP/TDAP/TD VACCINES (1 - Tdap) 2007 HEPATITIS B VACCINE (1 of 3 - 19+ 3-dose series) 2007 PNEUMOCOCCAL VACCINE (1 of 2 - PCV) 2007 HPV VACCINE (1 - 3-dose SCDM series) 2015 COVID-19 VACCINE (1 - 2023-2 5 season) 2025 INFLUENZA VACCINE (#1) 2025 ZOSTER VACCINE (1 of 2) 2038 HIB VACCINE Aged Out No longer eligi ble based on patient's age to complete this topic MENINGOCOCCAL (Group B) VACC INE SHARED DECISION-MAKING Aged Out No longer eligibl e based on patient's age to complete this topic MENINGOCOCCAL GROUPS A/C/Y/W VACCINE Aged Out No longer eligible b ased on patient's age to complete this topic Procedures Procedure Name Priority Date/Time Associated Diagnosis Comments COMPLETE PFT W/WO BRONCHODILATOR Routine 08/20/2025 9:34 AM CDT Dyspnea on exertion BLOOD GASES ART - PFT Routine 08/20/2025 7:33 AM CDT 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 INTERPRETATION: SPIROMETRY: FVC: normal. FEV1: normal. FEV1/FVC ratio is normal. BRONCHODILATOR RESPONSE: There is no significant response to bronchodilator therapy, however this does not mean the patient would not benefit from bronchodilator therapy. FLOW-VOLUME LOOPS: Inspection of the flow-volume loops shows normal flow-volume loops. LUNG VOLUMES: Lung volumes by body plethysmography show normal total lung volume and normal residual volume. DIFFUSION CAPACITY DLCO: Unadjusted for Hb and COHb is decreased. DLCO: Corrected for Hb and COHb is decreased. ARTERIAL BLOOD GAS ANALYSIS: Drawn on room air. Normal oxygenation Normal acid-base balance IMPRESSION: 1. Normal pulmonary function test. 2. When corrected for Hb and COHb, DLCO is mildly decreased. 3. ABG is normal. 4. No significant bronchodilator response, however this does not preclude the use of bronchodilators. 5. There is no previous study available for comparison. Joshua Espinoza MD Pulmonary & Critical Care Fellow Division of Pulmonary, Critical Care, and Sleep Medicine [facility] I have reviewed the above study and agree with the interpretation as listed above. Travon Ware MD Sales Agent Insurance of Pulmonary & Critical Care Medicine [facility] Narrative Travon Ware MD - 08/20/2025 9:34 AM CDT Travon Ware MD 08/20/2025 3:02 PM Procedure Note Joshua Mcgraw MD - 08/20/2025 9:34 AM CDT Images from the original note were not included. us Johnathan Saldivar MD RESPIRATORY THERAPY ORDERABL ES Edited Result - Final * (ABNORMAL) BLOOD GASES ART - PFT (08/20/2025 7:33 AM CDT) pH Arterial 7.42 7.35 - 7.45 pH 08/20/2025 8:05 AM [facility] pO2 Arterial 106(H) 80 - 100 mmHg 08/20/2025 8:05 AM [facility] pCO2 Arterial 35 35 - 45 mmHg 8:05 AM [facility] HCO3 Arterial 22.7 20.0 - 30.0 mmol/L 08/20/2025 8:05 AM [facility] BE Arterial -1.3 -2.0 - 2.0 mmol/L 08/20/2025 8:05 AM [facility] Oxyhemoglobin Arterial 91.7 % 08/20/2025 8:05 AM [facility] Dexoyhemoglobin (HHB) % 1.0 % 08/20/2025 8:05 AM [facility] Methemoglobin 0.8 0.0 - 2.0 % 08/20/2025 8:05 AM [facility] Carboxyhemoglobin 6.5(H) 0.0 - 2.0 % 2024 8:05 AM [facility] O2 Content Arterial 16.0 Interpret within clinical context ml/dL 08/20/2025 8:05 AM [facility] Hemoglobin by COOX 12.3 12.0 - 15.6 g/dL 08/20/2025 8:05 AM [facility] O2 Saturation Arterial 99 90 - 100 % 08/20/2025 8:05 AM [facility] FI O2 Arterial 21.0 % 08/20/2025 8:05 AM [facility] Blood, arterial ARTERIAL BLOOD SPECIMEN / Unknown 08/20/2025 7:33 AM CDT 08/20/2025 7:33 AM CDT Johnathan Saldivar MD LAB - BLOOD GASES ORDERABLES Final Result Performing Organization Address City/State/[facility] Co de Phone Number [facility] [address] [place] [address], [facility] [phone] from Last 3 Months Insurance [facility] Advance Directives * Full Code (Latest Code Status on File) Date Activated Date Inactivated Comments 06/03/2014 5:04 PM 06/04/2014 12:45 PM * Full Code Date Activated Date Inactivated Comments 06/02/2014 1:51 PM 06/03/2014 5:04 PM * FULL RESUSCITATION Date Activated Date Inactivated Comments 11/19/2013 6:51 PM 11/19/2013 11:18 PM * FULL RESUSCITATION Date Activated Date Inactivated Comments 09/17/2013 1:49 AM 09/17/2013 8:13 PM * FULL RESUSCITATION Date Activated Date Inactivated Comments 01/12/2013 5:54 PM 01/14/2013 10:25 PM Care Teams Glass Calibrator Relationship Specialty Start Date End Date Marco A Mullen MD PCP - OBGYN 05/27/08 Dave Vasquez, PA-C [address] [place] [phone] PCP - General 09/29/24
== END 2025-09-08 10:00 | disposition home or self-care (01) ==
PROVIDERS: PCP Physician Assistant Medical; Visit Provider Physician Assistant Medical
DX: G56.03 Carpal tunnel syndrome, bilateral upper limbs (principal); G56.21 Lesion of ulnar nerve, right upper limb
CPT/HCPCS: 95886; 95911